=== PATIENT | female | born 1965 | race African-American/Black ===

== ENCOUNTER 2017-12-18 20:06 | Emergency (ER) | payer OTHER ==
[2017-12-18] MEDS: HYDROcodone/APAP 5/325MG 1 TAB TABLET PO (20:22)
== END 2017-12-18 21:05 | disposition home or self-care (01) ==
LOC: ER 21:05
DX: S43.402A Unspecified sprain of left shoulder joint, initial encounter (principal); Z88.0 Allergy status to penicillin; X50.9XXA Other and unspecified overexertion or strenuous movements or postures, initial encounter; Y93.89 Activity, other specified; Y99.8 Other external cause status; Y92.89 Other specified places as the place of occurrence of the external cause
CPT/HCPCS: 73030; 99284

== ENCOUNTER → 2021-01-11 | Outpatient (CLI) | payer OTHER ==
[2017-12-18 20:09] VITALS: BP 146/89
[~2021-01-11] MED LIST: ACET325T9 PO; HYDR-3164 PO; IBUP-1060 PO; MULT-735 PO
[2021-01-11 12:57] LABS: BASO # 0.1 x10^3/uL (0.0-0.2); BASO % 1 % (0-3); EOS # 0.1 x10^3/uL (0.0-0.7); EOS % 1 % (0-3); HEMATOCRIT 37.3 % (36.0-47.0); HEMOGLOBIN 12.6 g/dL (12.0-15.5); LYMPH # 3.4 x10^3/uL (1.0-4.8); LYMPH % 45 % (24-48); MEAN CORPUSCULAR HEMOGLOBIN 31 pg (25-35); MEAN CORPUSCULAR HGB CONC 34 g/dL (31-37); MEAN CORPUSCULAR VOLUME 91 fL (79-100); MONO # 0.5 x10^3/uL (0.0-1.1); MONO % 7 % (0-9); NEUT # 3.4 x10^3/uL (1.8-7.7); NEUT % 46 % (31-73); PLATELET COUNT 350 x10^3/uL (140-400); RED BLOOD COUNT 4.12 x10^6/uL (3.50-5.40); RED CELL DISTRIBUTION WIDTH 13.8 % (11.5-14.5); WHITE BLOOD COUNT 7.6 x10^3/uL (4.0-11.0)
[2021-01-11 12:59] LABS: BILIRUBIN,URINE NEGATIVE (NEG); CLARITY,URINE CLEAR; COLOR,URINE YELLOW; NITRITE,URINE NEGATIVE (NEG); PROTEIN,URINE NEGATIVE (NEG-TRACE); UROBILINOGEN,URINE 0.2 mg/dL (0.2 mg/dL)
--- NOTE | 2021-01-11 13:10 | EKG ---
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
[2021-01-11 13:12] LABS: ALBUMIN 4.2 g/dL (3.4-5.0); ALBUMIN/GLOBULIN RATIO 1.2 (1.0-1.7); CALCIUM 9.3 mg/dL (8.5-10.1); CREATININE 0.8 mg/dL (0.6-1.0); GFR 90.1; POTASSIUM 3.6 mmol/L (3.5-5.1); TOTAL BILIRUBIN 0.5 mg/dL (0.2-1.0); TOTAL PROTEIN 7.7 g/dL (6.4-8.2)
[2021-01-11 13:19] LABS: BACTERIA,URINE 0 /HPF (0-FEW); RBC,URINE 0 /HPF (0-2); WBC,URINE OCC /HPF (0-4)
--- NOTE | 2021-01-11 13:42 | RAD ---
Site ID: [id number] EXAMINATION: XR CHEST 2V. HISTORY: 55 years Female Reason: PRE OP CXR. HYSTERECTOMY SCHEDULED FOR 01/16/2021 / Spl. Instructio ns: / History: . . COMPARISON: None. Findings: The lungs are clear. The heart size is normal. There is no effusion or pneumothorax. The mediastinum and sara appear unremarkable. Impression: Unremarkable study. Electronically signed by: Brian Merritt MD (01/11/2021 1:40 PM) [id number]
== END ==
LOC: SURGPAT 12:03
PROVIDERS: ATTEND Obstetrics & Gynecology
DX: Z01.810 Encounter for preprocedural cardiovascular examination (principal); I10 Essential (primary) hypertension; R94.31 Abnormal electrocardiogram [ECG] [EKG]; Z90.711 Acquired absence of uterus with remaining cervical stump
CPT/HCPCS: 36415; 71046; 80053; 81001; 85025; 93005

== ENCOUNTER → 2021-01-14 | Outpatient (CLI) | payer OTHER ==
[2017-12-18 20:09] VITALS: BP 146/89
== END ==
LOC: LAB 08:46
PROVIDERS: ATTEND Obstetrics & Gynecology
DX: Z01.812 Encounter for preprocedural laboratory examination (principal); R10.2 Pelvic and perineal pain; Z20.822 Contact with and (suspected) exposure to COVID-19
CPT/HCPCS: U0003; U0005

== ENCOUNTER 2021-01-16 06:02 | Observation (INO) | payer OTHER ==
[2021-01-11 12:47] VITALS: BP 154/83
[2021-01-16] VITALS (9 sets, daily range): BP systolic 105–139; BP diastolic 54–83
[~2021-01-16] VITALS: Ht 180.3 cm; Wt 128.0 kg
[~2021-01-16 06:02] MED LIST changes: +IV RINGERS,LACTATED 1000ML 1,000 ML IV SCH; +PROCHLORPERAZINE 10 MG/2 ML VIAL. IVP PRN; +ceFAZolin SODIUM 3 GM in IV DEXTROSE 5% 100ML 100 ML IV PRN; +fentaNYL PF VIAL 100 MCG/2 ML VIAL IVP PRN
[2021-01-16] MEDS ORDERED: LIDOCAINE 2% PF 5 ML VIAL. ONE (07:04)
[2021-01-16] MEDS ORDERED: PROPOFOL 10 MG/ML (20ML) VIAL. IV ONE (07:04)
[2021-01-16] MEDS ORDERED: MIDAZOLAM HCL/PF 2 MG/2 ML VIAL. ONE (07:04)
[2021-01-16] MEDS ORDERED: ROCURONIUM 50 MG/5 ML VIAL. ONE ×2 (07:05→07:59)
[2021-01-16] MEDS ORDERED: fentaNYL PF VIAL 250 MCG/5 ML VIAL ONE (07:05)
[2021-01-16] MEDS ORDERED: BUPIVACAINE-EPI 0.25% 30 ML VIAL KIT. ONE (07:07)
[2021-01-16] MEDS ORDERED: INDIGOTINDISULFONATE SODIUM 40 MG/5 ML AMPUL. ONE (07:07)
[2021-01-16] MEDS ORDERED: ESTROGENS, CONJ VAGINAL CREAM 30GM TUBE. ONE (07:07)
[2021-01-16] MEDS ORDERED: GLYCOPYRROLATE 1 MG/5 ML VIAL. ONE (07:44)
[2021-01-16] MEDS ORDERED: ONDANSETRON PF 4 MG/2 ML VIAL. ONE (07:59)
[2021-01-16] MEDS ORDERED: DEXAMETHASONE SOD PHOS 4 MG/ML VIAL ONE (07:59)
[2021-01-16] MEDS ORDERED: KETAMINE HCL IN NACL, ISO-OSM 50 MG/5 ML SYRINGE ONE (08:05)
[2021-01-16] MEDS ORDERED: NEOSTIGMINE METHYLSULFATE 5 MG/5 ML SYRINGE. ONE (08:45)
[2021-01-16] MEDS ORDERED: SEVOFLURANE > 120 MINUTES. IH ONE (09:15)
[2021-01-16] MEDS ORDERED: KETOROLAC 30 MG/ML VIAL. ONE (09:50)
--- NOTE | 2021-01-16 10:13 | PDOC ---
BRIEF OPERATIVE NOTE Date: January 16, 2021 Pre-Op Diagnosis pelvic pain, fibroid uterus Post-Op Diagnosis same Procedure Performed LAVH/BSO Surgeon Dr. Mariee Grinding Supervisor JEFFERSON Cobian Anesthesiologist Dr. Adrian Anesthesia Type: General Blood Loss 250cc IV Fluid 1700cc Urine Output 150cc clear via bermudez Specimens Obtained cervix, uterus, bilateral tubes and ovaries Findings enlarged RV uterus, normal bilateral tubes and ovaries, large cystocele Complications none Operative Note [id number] EDISON MARIEE MD January 16, 2021 10:13
[2021-01-16] MEDS ORDERED: ONDANSETRON PF 4 MG/2 ML VIAL. IV PRN (10:15)
[2021-01-16] MEDS ORDERED: diphenhydrAMINE 50 MG/ML VIAL IV PRN (10:15)
[2021-01-16] MEDS ORDERED: ZOLPIDEM 5 MG TABLET. PO PRN (10:15)
[2021-01-16] MEDS ORDERED: 0.9 % SODIUM CHLORIDE 10 ML DISP.SYRIN. IV PRN (10:15)
[2021-01-16] MEDS ORDERED: LACTULOSE 20 GM/30 ML SOLUTION. PO PRN (10:15)
[2021-01-16] MEDS ORDERED: MAGNESIUM HYDROXIDE 2,400 MG/30 ML ORAL.SUSP. PO PRN (10:15)
[2021-01-16] MEDS ORDERED: diphenhydrAMINE HCL 25 MG CAPSULE PO PRN (10:15)
[2021-01-16] MEDS ORDERED: SIMETHICONE 80 MG TAB.CHEW PO PRN (10:15)
[2021-01-16] MEDS ORDERED: CALCIUM CARBONATE 500 MG TAB.CHEW PO PRN (10:15)
[2021-01-16] MEDS ORDERED: MAG HYDROX/ALUMINUM HYD/SIMETH 30 ML ORAL.SUSP PO PRN (10:15)
[2021-01-16] MEDS ORDERED: NALOXONE 0.4 MG/ML VIAL. IV PRN (10:15)
[2021-01-16] MEDS ORDERED: fentaNYL PF VIAL 100 MCG/2 ML VIAL ONE (10:29)
[2021-01-16] MEDS: fentaNYL PF VIAL 100 MCG/2 ML VIAL IVP PRN ×2 (10:33→10:50)
[2021-01-16] MEDS ORDERED: PROCHLORPERAZINE 10 MG/2 ML VIAL. ONE (10:50)
[2021-01-16] MEDS: MORPHINE SULFATE 2 MG/ML VIAL. IV PRN ×2 (11:25→17:46)
[2021-01-16] MEDS ORDERED: HYDROmorphone 2 MG/ML VIAL ONE (11:32)
[2021-01-16] MEDS: HYDROmorphone 2 MG/ML VIAL IVP PRN ×2 (11:35→11:52)
--- NOTE | 2021-01-16 12:30 | NUR ---
Arrived to unit by bed from PACU. Awakens but falls back to sleep. Abdomen has 3 lap sites d/i. Also has OB pad with mesh panty. KYLE's and SCD's on bilaterally. IVF's intact and infusing. Side rails up x's 2 with call light in reach. Spouse at bedside. Cont. monitor.
[2021-01-16] MEDS ORDERED: MECLIZINE HCL 12.5 MG TABLET. PO ONE (19:45)
--- NOTE | 2021-01-16 21:26 | OP ---
DATE OF SURGERY: 01/16/2021 PREOPERATIVE DIAGNOSES: Perimenopausal, enlarged fibroid uterus and pelvic pain. POSTOPERATIVE DIAGNOSES: Perimenopausal, enlarged fibroid uterus and pelvic pain. PROCEDURE: Laparoscopic-assisted vaginal hysterectomy, bilateral salpingo-oophorectomy. SURGEON: Juliet Mariee MD STRATEGIC PARTNERSHIP SPECIALIST: JEFFERSON Cervantes. ANESTHESIOLOGIST: Dr. Adrian. ANESTHESIA: General. BLOOD LOSS: 250 mL URINE OUTPUT: 150 mL clear via Britt catheter. FLUIDS: 1700 mL of crystalloid. SPECIMEN: Cervix, uterus, bilateral tubes and ovaries. FINDINGS: She had an enlarged retroverted uterus, normal bilateral tubes and ovaries and a large cystocele was present vaginally. COMPLICATIONS: None. DESCRIPTION OF PROCEDURE: This patient was taken to the operating room where general anesthesia was placed. The patient was placed in a dorsal lithotomy position in [facility]. The patient's abdomen and vagina were both prepped and draped in the normal sterile fashion and a Birtt catheter had been inserted under sterile technique. Upon my arrival, once everyone agreed on the patient, the site and the procedure, the antibiotics; the procedure was initiated. A bivalve speculum was placed in the patient's vagina. A single-tooth tenaculum was used to grasp the anterior lip of the cervix. A 10 mL of 0.25% Marcaine with epinephrine was used to circumferentially inject around the cervix for both hemo-dissection and hemostatic purposes later. The ValtchEDUS uterine manipulator was placed through the endocervical os, locked on the single tooth tenaculum and the bivalve speculum was then removed. Top gloves were discarded and changed. Attention was then turned to the abdomen where a supraumbilical skin was injected with local, then made the incision and then a curved Cristine was used to dissect through the subcuticular layer to the fascia. The 5-mm Visiport was used to directly into the abdominal cavity. Opening patient pressure was 4-5 mmHg. Carbon dioxide gas was used to then appropriately insufflate the abdominal cavity to maintain a pressure of 15 mmHg. Direct abdominal placement had been confirmed via the laparoscope. Overhead lights were dimmed. The patient was placed in Trendelenburg position. Right and left lower quadrant ports, we transilluminated the abdominal wall. There were no adhesions on the inside, finding an area clear of any vasculature, injecting with local, then making a small incision and then placing the 5 mm disposable port under direct visualization. A 4-5 mL of air was placed in the trocar cuffs. The camera was then moved laterally to look at the umbilical port. Once it was found to be in and cleared, it was also inflated with 4-5 mL of air and the trocar cuff. Camera was moved back to the midline after the right and left lower quadrant ports were placed and attention was turned to the pelvis. There were no significant adhesions. The left tube and ovary were grossly normal. The right tube and ovary were grossly normal. There was an enlarged retroverted uterus. The left tube and ovary were elevated, finding the ureter coursing low in the pelvis, staying high on the infundibulopelvic ligament, cauterizing and cutting the infundibulopelvic ligament, taking the left tube and ovary, going over towards the uterus and doing the left round ligament. This was done exactly the same on the right side, picking up the right tube and ovary, finding the ureter coursing low in the pelvis and staying high on the infundibulopelvic ligament, taking the right tube and ovary with the LigaSure, cauterizing and cutting, going over towards the uterus and then crossing the right round ligament as well. The uterus was pushed cephalad. The bladder flap was grasped with the [place] and the monopolar hook was used to cut across it and take down the bladder sharply and it was gently pulled down then with the [place]. Once this was done, the uterine vessels were obtained on the right side, cauterizing and cutting, staying inside that pedicle on the posterior cervix, hugging the cervix, going through the cardinal and broad ligaments, cauterizing and cutting to the level of the uterosacral, then crossing contralaterally and going down the side to left side of the uterus, hugging the cervix and getting the uterine, staying inside that pedicle going through the cardinal and broad down to the level of the uterosacral. 3-4 bites were taken on this side, cauterizing and cutting with the LigaSure. Once this was done, the uterus was completely free. There were no adhesions to it. It was blanched. The blood supply had been obtained, so all instruments were removed abdominally and attention was turned vaginally. The overhead lights were taken off. The patient was taken out of Trendelenburg. The single tooth and Valtchev were removed. A weighted speculum was placed in the patient's vagina. Thyroid Mia clamps were placed on the anterior and posterior lips of the cervix respectively. A scalpel was used to make a circumferential incision in the cervix, was taken down sharply as well as an open Ray-Leonidas was used to gently push up the anterior bladder peritoneum off the cervix. The anterior cul-de-sac was digitally and bluntly entered and the curved [place] was placed in the anterior cul-de-sac. The 4 x 4 was passed off to the back table. The cervix was elevated and the posterior cul-de-sac was sharply entered with curved Drew scissors. A #0 Vicryl stitch was used to secure the posterior peritoneum to the vaginal cuff that was tagged with a curved Cristine clamp. The needle was cut and passed off. The short weighted vaginal speculum was removed and replaced with the long weighted Jonathan speculum in the posterior cul-de-sac. Curved Heaneys x2 were placed on the patient's left uterosacral ligament where they were doubly clamped with curved Heaneys, cut with curved Drew scissors and suture ligated x2 with 0 Vicryl, second one was taken through the vaginal cuff securing uterosacral ligament to the vaginal cuff, tagging it with a straight Cristine clamp, then cutting and passing the needle off. This was done exactly the same on the patient's right side, double clamping the uterosacrals with curved Heaneys, cutting with curved Drew scissors, suture ligating x2 with 0 Vicryl, again taking the second one through the vaginal cuff, securing the uterosacral ligament to the vaginal cuff, tagging it with a straight Cristine clamp and cutting and passed and the needle off. The remaining pedicles on both sides were delineated with the curved Mixter and the vaginal LigaSure was used to cauterize and cut, starting on the left side until it was completely free and than the right side. Cervix, uterus, bilateral tubes and ovaries were delivered in toto and passed off for permanent pathology. Once this was done, the long Allis was used to grasp the anterior bladder peritoneum. A sponge stick was used to examine the pedicles. It appeared there was just cuff bleeding, especially on the patient's left side, but the right side underneath the uterosacral was bleeding, so I grasped the uterosacral with a Burlisher. I went ahead and cauterized behind it just to make sure it was good, elevated and I placed an interrupted stitch right under the corner thereof the cuff that was bleeding and did slow down very significantly. The upper abdomen looked good. There were no clots or debris. The sponge stick was used to examine all the pedicles. So at this point, 2-0 Vicryl was taken through the anterior bladder peritoneum, left uterosacral ligament, posterior peritoneum. I did take it through the cuff in a couple of places as well in the right uterosacral ligament, thus closing the peritoneum in a pursestring like fashion. Once this was done, the right and left uterosacral tags were clipped. The cuff was closed in an anterior to posterior running locked fashion with excellent results. It was completely hemostatic. Sponge stick was dry. All gloves were discarded and changed and attention was turned back above. The overhead lights were re-dimmed. The patient was placed back in Trendelenburg. Gas was reinsufflated. Copious irrigation revealed hemostasis. Tisseel was placed over the cuff. Right and left pericolic gutters were clear. The cuff remained dry, so the 4-5 mL of air was taken out of all 3 trocars. Right and left trocars were removed under direct visualization. They were hemostatic. The cuff still looked good, so the gas was released from the umbilical port and it was removed as well. All 3 port sites were closed with 4-0 nylon and the patient is currently being awakened from anesthesia. CEE DR: Flor TID: [id number]
[2021-01-16] MEDS: HYDROcodone/APAP 5/325MG 1 TAB TABLET PO PRN (23:19)
[2021-01-17 03:21] VITALS: BP 103/60
[2021-01-17] MEDS: HYDROcodone/APAP 5/325MG 1 TAB TABLET PO PRN (04:26)
[2021-01-17 05:42] LABS: CALCIUM 8.5 mg/dL (8.5-10.1); CREATININE 0.8 mg/dL (0.6-1.0); GFR 90.1; POTASSIUM 4.2 mmol/L (3.5-5.1)
[2021-01-17 06:15] VITALS: BP 129/79
[2021-01-17] MEDS: oxyCODONE/APAP 5/325 1 TAB TABLET PO PRN ×2 (07:10→11:09)
[2021-01-17] MEDS ORDERED: IBUPROFEN 400 MG TABLET. PO PRN (09:00)
[2021-01-17 11:00] VITALS: BP 123/78
--- NOTE | 2021-01-17 16:11 | NUR ---
COMPUTER GLITCHED DURING DISCHARGE PROCESS! Patient was discharged from the facility around 1610. Discharge education completed this morning by Dr Mariee and gone over more by this nurse prior to dismissal. IVs discontinued prior to discharge. No concerns noted at dismissal
--- NOTE | 2021-01-17 16:18 | NUR ---
Patient went home with her
--- NOTE | 2021-01-17 17:07 | PATHOLOGY ---
[facility] Accession Number: [id number] . 01 Material submitted: . uterus - CERVIX,UTERUS,BILATERAL FALLOPIAN TUBES AND OVARIES . 01 Clinical history: . FIBROIDS,ENLARGED UTERUS . 02 Diagnosis: Uterus and attached bilateral fallopian tubes and ovaries, laparoscopic assisted vaginal hysterectomy with bilateral salpingo-oophorectomy: - Leiomyomas, uterine corpus, multiple, the largest measuring 2.2 cm in greatest dimension (uterine weight 156 grams). - Adenomyosis, uterine corpus, focal. - Chronic cervicitis, focal. - Inactive/weakly proliferative endometrium. - Congestion of bilateral fallopian tubes. - Paratubal cysts, bilateral. - Small cystic follicle of left ovary. - Right ovary showing no diagnostic abnormalities. LBQ 01/17/2021 1304 Local . 02 Comment: There is no atypia or evidence of malignancy. (JPM/db; 01/17/2021) . 02 Electronically signed: . Jake Bangura MD, Pathologist NPI- [id number] . 01 Gross description: . Labeled: Uterus cervix bilateral fallopian tubes and ovaries Specimen received: in formalin Specimen received as a hysterectomy specimen with attached bilateral symmetrical adnexa Uterus weight: 156 gm Uterus: 11 x 6 x 4.1 cm Serosa: pink-abraham and inked as anterior blue and posterior black 3 gm fimbriated Right fallopian tube: 7.2 cm in length, 0.6 cm in diameter Right fallopian tube appearance: Multiple paratubal transparent cyst measuring up to 0.5 cm 3 gm fimbriated Left fallopian tube: 7.5 cm in length, 0.6 cm in diameter Left fallopian tube appearance: Multiple paratubal transparent cyst measuring up to 0.4 cm 3.5 gm Right ovary: 3.7 x 2.5 x 1.8 cm Right ovary appearance: Unremarkable 3.5 gm Left ovary: 3.5 x 2.2 x 2 cm Left ovary appearance: Unremarkable Ectocervix: Focally congested Cervical os: patent, measuring 0.5 cm Endocervical canal: squamo-columnar junction visualized Endometrial cavity: 7 x 2.3 cm Endometrial thickness: 0.1 cm Myometrial thickness: 3.7 cm with multiple abraham to mahoney white firm whorled rubbery myometrial nodules measuring up to 2.2 cm; no areas of hemorrhage softening or necrosis Lesions/abnormalities: None . Special Effects Technician sections are submitted as follows: A1-A2 right adnexa A3-A4 left adnexa A5 anterior cervix A6 posterior cervix A7-A8 anterior endomyometrium A9-A10 posterior endomyometrium ([facility]; 01/16/2021) VAN/VAN 01/16/2021 1616 Local . 02 Pathologist provided ICD-10: D25.9, N80.0, N72, N85.9, N83.8 . 02 CPT . 553000 Specimen Comment: A courtesy copy of this report has been sent to [phone], [phone] Specimen Comment: [id number] Specimen Comment: Report sent to / DR MELENDEZ Performed at: [address], [place] [id number] MD Dipak Abdalla MD Phone: [phone] Performed at: 02 [facility] [address] [place], [place] [id number] MD Jake Bangura MD Phone: [phone]
--- NOTE | 2021-01-23 07:35 | PDOC ---
SURGICAL PROGRESS NOTE DATE: 01/17/21 TIME: 07:30 late entry (forgot to write note after surgery, but saw pt and gave verbal discharge orders before going to surgery that morning) Subjective Pt awake in bed upon exam, getting ready to eat breakfast. Had some dizziness overnight but did not take her meclazine, when ordered it helped. Voiding without catheter, and scant VB Vital Signs AFVSS I&O no catheter PATIENT HAS A MILLER: No General: Alert, Oriented X3, Cooperative, No acute distress HEENT: Atraumatic Heart: Regular rate Abdomen: Soft, No tenderness, Other (all port sites c/d/i) Extremities: No clubbing, No cyanosis, No edema Skin: No rashes, No breakdown Neuro: Normal speech Psych/Mental Status: Mental status NL, Mood NL Labs CBC and lytes both ok that morning I have reviewed the following labs, vitals and nursing Assessment/Plan POD#1 Routine PO care d/c to home later today NPV x 6 weeks light/limited activity x 2 weeks keep one week scheduled follow up with me in the office already has narcotic pain meds at home ok for OTC ibuprofen as needed also call or return sooner for any other questions or concerns not limited to but including pain unrelieved with pain meds, increased or unexplained vb, T>100.4 Justicifation of Admission Dx: Justifications for Admission: Justification of Admission Dx: Yes (was post hysterectomy) EDISON LOWE MD Jan 23, 2021 07:35
--- NOTE | 2021-01-23 14:19 | NUR ---
KCl started at 04:27 on 01/17/21--stop time 12:30 on 01/17/21
== END 2021-01-17 15:30 | disposition home or self-care (01) ==
LOC: SURG 06:02 → 4 SOUTHEST 10:16
PROVIDERS: ADMIT Obstetrics & Gynecology; ATTEND Obstetrics & Gynecology
DX: D25.9 Leiomyoma of uterus, unspecified (principal); N85.2 Hypertrophy of uterus; R10.2 Pelvic and perineal pain; N85.4 Malposition of uterus
CPT/HCPCS: 36415; 58552; 80048; 81025; 85014; 86850; 86900; 86901; 88307; 96361; 96374; 96375; A4314; A4364; A4930; A6219; G0378; G0379; J1100; J1885; J2250; J2270; J2405; J2704; J2710; J3010; J3480; J3490; J8597; A4351; A4657